=== PATIENT | male | born 1995 ===

== ENCOUNTER → 2017-12-02 | Outpatient (CLI) | payer OTHER ==
--- NOTE | 2017-12-04 08:33 | Medical Nutrition Therapy ---
Nutritional Education Nutrition Education Topic: Other (IBS) Learning Readiness: Interested Teaching Methods: Discussion, Handout Response to Teaching: Verbalize understanding Teaching Recipient: Patient Nutrition Counseling: Pt with extensive hx of IBS. Discussed FODMAP diet with pt. Pt had been given Aubrie diet from previous dr and felt it had worked for a while. Pt states he thinks meats/fish.chicken is causing him problems rather than starches and sugars. Recommend pt try FODMAP with lactose free vegetarian and provided guildlines for pt to meet protein needs on that diet. Pt is to try it for 2 weeks. If he doesn't see an improvement, he should slowly add meat back into diets. Pt states he will be traveling this summer which may make compliance difficult. Discussed snacks to keep on hand to help with compliance. Nutrition Monitoring & Eval RD Patient Assessment Time: 30 minutes Nutritional Comment: Provided 40 minutes MNy for TBS dx Copies To Copies to: JB MENDOZA BETH December 02, 2017 16:54
== END ==
LOC: DIET 10:00
PROVIDERS: ATTEND Nurse Practitioner Family
DX: Z71.3 Dietary counseling and surveillance (principal); K58.0 Irritable bowel syndrome with diarrhea
CPT/HCPCS: 97802